=== PATIENT | male | born 1965 | race African-American/Black ===

== ENCOUNTER → 2020-07-14 | Outpatient (CLI) | payer BC, OTHER ==
--- NOTE | 2020-07-14 14:17 | Diagnostic Imaging Report ---
INDICATION: Bilateral groin pain. FINDINGS: AP pelvis. SI joints are symmetrical and appear normal. Pubic symphysis in good alignment. The femoral heads show normal articulation bilaterally. Joint spaces are well-maintained. Articulating surfaces are smooth. No fractures are demonstrated. There is noted a phlebolith in the pelvis on the left. IMPRESSION: Normal AP pelvis. Dictated by: Dictated on workstation # [id number]
== END ==
LOC: RAD FS 13:48
PROVIDERS: ATTEND Nurse Practitioner
DX: R10.31 Right lower quadrant pain (principal); R10.32 Left lower quadrant pain
CPT/HCPCS: 72170